=== PATIENT | male | born 1965 | race Caucasian/White ===

== ENCOUNTER 2021-02-07 04:54 | Emergency (ER) | payer BC, SELFPAY ==
--- NOTE | ~2021-02-07 | MR_ITS ---
MRI OF THE BRAIN WITHOUT IV CONTRAST MRA OF THE BRAIN WITH AND WITHOUT IV CONTRAST MRV OF THE BRAIN WITH AND WITHOUT IV CONTRAST INDICATION: Abnormal CT scan. COMPARISON: CTA head and neck performed earlier the same day. TECHNIQUE: Multiplanar multisequence MR imaging of the brain was obtained without IV contrast. Additionally, noncontrast and gadolinium infusion MRA and MRV of the head are obtained. Vascular post-processing, including 2-dimensional and 3-dimensional reformatted images were created and reviewed on an independent workstation under concurrent physician supervision. Stenoses are graded per criteria similar to NASCET. FINDINGS: MRI BRAIN: There is no hydrocephalus, extra-axial surface collection, or herniation. No parenchymal signal abnormality. The major flow voids at the skull base are preserved. There is no acute infarct on diffusion-weighted imaging. There is no intracranial hemorrhage on the gradient recalled echo acquisition. The midline structures are normal. The cerebellar tonsils are normally positioned. The cerebellum and brainstem are normal. The craniocervical junction is normal. Osseous marrow signal intensity is homogenous. The visualized soft tissues are unremarkable. MRA HEAD: Previous CTA findings were presumably artifactually related to delayed venous bolus timing. There is no arterialized venous flow to suggest a high flow vascular malformation. The anterior and posterior intracranial arterial circulations are widely patent without significant arterial stenosis and without acute arterial occlusion. No aneurysms and no high flow vascular malformations. MRV HEAD: The previously described filling defect within the right transverse sinus corresponds to an incidental arachnoid granulation. There is no evidence of cerebral venous thrombosis. The superficial and deep venous systems are patent. MR/MR venography head wo/w con IMPRESSION: - No acute intracranial findings. No acute infarcts. - The previously described filling defect within the right transverse sinus corresponds to an incidental arachnoid granulation. There is no evidence of cerebral venous thrombosis. - Previous CTA findings were presumably artifactually related to delayed venous bolus timing. There is no arterialized venous flow to suggest a high flow vascular malformation. Unremarkable MRA of the head.
--- NOTE | ~2021-02-07 | CT_ITS ---
CT HEAD WITHOUT CONTRAST CT ANGIOGRAM NECK WITH CONTRAST CT ANGIOGRAM BRAIN WITH CONTRAST CLINICAL INFORMATION: Right arm and right leg paresthesias for 3 days. COMPARISON: None. TECHNIQUE: Test bolus sequences followed by intravenous administration 70 mL of Omnipaque 350. Helical imaging was performed in the axial plane from the thoracic inlet to the skull vertex. Delayed postcontrast imaging of the head was also performed. The data was processed at the certified cytotechnologist workstation for generation of MIP sequences. Angled MIPs and volume rendered reformatted images were also generated at an offline 3D workstation under concurrent supervision. Stenoses are assessed in accordance with NASCET criteria unless otherwise indicated. This CT examination was performed using dose optimization techniques as appropriate, variously including the following: *Automated exposure control *Adjustment of mA and/or kV according to patient size (this includes techniques or standardized protocols for targeted exams where dose is matched to indication/reason for exam; i.e. extremities or head) *Use of iterative reconstruction technique FINDINGS: BRAIN: [There is no intracranial hemorrhage, hydrocephalus, extra-axial surface collection, midline shift, or other herniation pattern. Steele to white matter differentiation is diffusely maintained without evidence of an evolved acute territorial infarct. The basilar cisterns are preserved. No significant soft tissue abnormality. No acute osseous abnormality. The paranasal sinuses and the mastoid air cells are well aerated.] CERVICAL SOFT TISSUES AND LUNG APICES: Calcified tonsilliths within the palatine tonsils bilaterally. Mild cervical spondylosis. Imaged upper lungs are clear. NECK CTA: [There is a classic 3 vessel configuration of the aortic arch. Proximal arch vessels are non-stenotic. Left vertebral artery is dominant. No significant ostial stenosis is visualized on either side. Both vertebral arteries are widely patent throughout their extracranial cervical course. Both common carotid arteries are normal in course and caliber.] Atherosclerotic disease results in less than 50% stenoses of the proximal internal carotid arteries bilaterally. BRAIN CTA: [There is normal opacification of major intracranial arteries. No focal flow-limiting stenosis nor discrete proximal large artery occlusion. No aneurysm. There are asymmetrically prominent vessels throughout the supratentorial and infratentorial compartments, eccentric to the right side as well as a possible filling defect within the right transverse sinus that could reflect an arachnoid granulation or partially occlusive thrombus. And a MRA/MRV of the head with and without IV contrast and MRI of the brain would be helpful in excluding cerebral venous thrombosis and/or the presence of a dural AV fistula given these findings. CT/CT angio head neck IMPRESSION: - There are asymmetrically prominent vessels throughout the supratentorial and infratentorial compartments, eccentric to the right side as well as a possible filling defect within the right transverse sinus that could reflect an arachnoid granulation or partially occlusive thrombus. And a MRA/MRV of the head with and without IV contrast and MRI of the brain would be helpful in excluding cerebral venous thrombosis and/or the presence of a dural AV fistula given these findings. - No acute intracranial findings. - No acute arterial occlusions and no significant arterial stenoses within the head or neck. - Atherosclerotic disease results in less than 50% stenoses of the proximal internal carotid arteries bilaterally.
--- NOTE | ~2021-02-07 | CT_ITS ---
CT HEAD WITHOUT CONTRAST CT ANGIOGRAM NECK WITH CONTRAST CT ANGIOGRAM BRAIN WITH CONTRAST CLINICAL INFORMATION: Right arm and right leg paresthesias for 3 days. COMPARISON: None. TECHNIQUE: Test bolus sequences followed by intravenous administration 70 mL of Omnipaque 350. Helical imaging was performed in the axial plane from the thoracic inlet to the skull vertex. Delayed postcontrast imaging of the head was also performed. The data was processed at the senior cytotechnologist workstation for generation of MIP sequences. Angled MIPs and volume rendered reformatted images were also generated at an offline 3D workstation under concurrent supervision. Stenoses are assessed in accordance with NASCET criteria unless otherwise indicated. This CT examination was performed using dose optimization techniques as appropriate, variously including the following: *Automated exposure control *Adjustment of mA and/or kV according to patient size (this includes techniques or standardized protocols for targeted exams where dose is matched to indication/reason for exam; i.e. extremities or head) *Use of iterative reconstruction technique FINDINGS: BRAIN: [There is no intracranial hemorrhage, hydrocephalus, extra-axial surface collection, midline shift, or other herniation pattern. Steele to white matter differentiation is diffusely maintained without evidence of an evolved acute territorial infarct. The basilar cisterns are preserved. No significant soft tissue abnormality. No acute osseous abnormality. The paranasal sinuses and the mastoid air cells are well aerated.] CERVICAL SOFT TISSUES AND LUNG APICES: Calcified tonsilliths within the palatine tonsils bilaterally. Mild cervical spondylosis. Imaged upper lungs are clear. NECK CTA: [There is a classic 3 vessel configuration of the aortic arch. Proximal arch vessels are non-stenotic. Left vertebral artery is dominant. No significant ostial stenosis is visualized on either side. Both vertebral arteries are widely patent throughout their extracranial cervical course. Both common carotid arteries are normal in course and caliber.] Atherosclerotic disease results in less than 50% stenoses of the proximal internal carotid arteries bilaterally. BRAIN CTA: [There is normal opacification of major intracranial arteries. No focal flow-limiting stenosis nor discrete proximal large artery occlusion. No aneurysm. There are asymmetrically prominent vessels throughout the supratentorial and infratentorial compartments, eccentric to the right side as well as a possible filling defect within the right transverse sinus that could reflect an arachnoid granulation or partially occlusive thrombus. And a MRA/MRV of the head with and without IV contrast and MRI of the brain would be helpful in excluding cerebral venous thrombosis and/or the presence of a dural AV fistula given these findings. CT/CT head/brain wo con IMPRESSION: - There are asymmetrically prominent vessels throughout the supratentorial and infratentorial compartments, eccentric to the right side as well as a possible filling defect within the right transverse sinus that could reflect an arachnoid granulation or partially occlusive thrombus. And a MRA/MRV of the head with and without IV contrast and MRI of the brain would be helpful in excluding cerebral venous thrombosis and/or the presence of a dural AV fistula given these findings. - No acute intracranial findings. - No acute arterial occlusions and no significant arterial stenoses within the head or neck. - Atherosclerotic disease results in less than 50% stenoses of the proximal internal carotid arteries bilaterally.
--- NOTE | ~2021-02-07 | XR_ITS ---
EXAMINATION: CHEST 1 VIEW CLINICAL INFORMATION: Right-sided chest pain. COMPARISON: None. TECHNIQUE: An AP view of the chest is provided. FINDINGS: The cardiac silhouette is not enlarged. The mediastinal and hilar contours are unremarkable. There are neither pleural effusions nor pneumothoraces. There are no consolidations. The osseous structures are unremarkable. XR/XR chest 1V IMPRESSION: No evidence for acute disease.
--- NOTE | 2021-02-07 05:05 | ECG_ITS ---
Test Reason : CHEST PAIN Blood Pressure : / mmHG Vent. Rate : 086 BPM Atrial Rate : 086 BPM P-R Int : 136 ms QRS Dur : 080 ms QT Int : 374 ms P-R-T Axes : 069 014 069 degrees QTc Int : 447 ms Normal sinus rhythm Normal ECG No previous ECGs available Referred By: Iveth Han Electronically Signed By:Jimmie Griffith
--- NOTE | 2021-02-07 05:06 | ED.GENADULT ---
HPI - General Adult General Chief complaint: Chest Pain Stated complaint: Chest Pain Time Seen by Provider: 02/07/21 04:58 Source: patient Mode of arrival: ambulatory Limitations: no limitations History of Present Illness HPI narrative: Patient comes to emergency room complaining of right-sided chest pain for 3 days. Patient states the pain is dull, worse with certain movements, sometimes feels the pain radiating towards his back and his right shoulder. Patient denies abdominal pain, no burning sensation, no nausea or vomiting. Patient denies shortness of breath. Patient states that he is also concerned that he feels that his whole right body feels a bit tingly. Patient denies loss of strength, states that his right side of the body does not feel right and is a constant sensation. Related Data Allergies Allergy/AdvReac Type Severity Reaction Status Date / Time azithromycin [AZITHROMYCIN] Allergy Intermediate RASH Verified 02/07/21 05:06 clindamycin [CLINDAMYCIN] Allergy Intermediate ERYTHEMA Verified 02/07/21 05:06 MULTIFORME Penicillins [PENICILLINS] Allergy Unknown UNKNONWN Verified 02/07/21 05:06 Review of Systems Review of Systems: Constitutional : No Weight loss, No Fever, No Chills, No Night Sweats, No Fatigue, No Malaise ENT/Mouth : No Hearing loss, No Ear Pain, No Nasal Congestion, No Sinus Pain, No Hoarseness, No sore throat, No Rhinorrhea, No Swallowing Difficulty Eyes: No Eye Pain, No Swelling, No Redness, No Foreign Body, No Discharge, No Vision Changes Cardiovascular : Complaining of right-sided dull chest pain for 3 days radiating towards the back and right shoulder, worse with certain movements, No SOB, No Dyspnea on Exertion, No Orthopnea, No Edema, No Palpitations Respiratory : No Cough, No Sputum, No Wheezing, No Smoke Exposure, No Dyspnea Gastrointestinal : No Nausea, No Vomiting, No Diarrhea, No Constipation, No abdominal Pain, No Hematochezia, No Melena Genitourinary : no irregular bleeding, No Dysuria, No Urinary Frequency, No Hematuria, No Urinary Incontinence, No Urgency, No Flank Pain, No Urinary Flow Changes, No Hesitancy Musculoskeletal : No joint pain, No Myalgias, No Joint Swelling Skin : No Skin Lesions, No rash Neuro : No Weakness, No Numbness, No Paresthesias, No Loss of Consciousness, No Dizziness, No Headache Psych : No Anxiety/Panic, No Depression, No SI/HI/AH/VH, No Social Issues, Heme/Lymph: No Bruising, No Bleeding,No Lymphadenopathy Endocrine : No Polyuria, No Polydipsia, No Temperature Intolerance [facility] Past Medical History Medical History (Updated 02/07/21 @ 05:08 by Iveth Han MD) Hyperlipidemia Social History Social History Advance Directives: No Advance Directives Information Provided: No Physical Exam Vital Signs: Vital Signs: Last Vital Signs Temp 98 F 02/07/21 05:07 Pulse 88 02/07/21 05:07 Resp 16 02/07/21 05:07 BP 113/75 02/07/21 05:07 Pulse Ox 97 02/07/21 05:07 Body Mass Index 32.3 Appearance: Alert. Oriented X3. No acute distress. Eyes: Pupils equal, round and reactive to light. ENT: Pharynx normal. Neck: Normal inspection. Neck supple. No lymph nodes noted. No crepitus CVS: Normal heart rate and rhythm. Pulses normal. Normal S1 and S2 Respiratory: No respiratory distress. Breath sounds normal. No Wheezing. No rales Abdomen: Soft and nontender. No rigidity. No distention. good BS x4 Skin: Skin warm and dry. Normal skin color. Normal skin turgor. Extremities: No lower extremity edema. No lower extremity edema. No Lacerations. No Rash, strength 5/5 in bilateral lower and upper extremities Neuro: Oriented X 3. No motor deficit. No sensory deficit. Moving all extermities. No slurred speech. NIH Stroke Scale Level of Consciousness: Alert Level of Consciousness Questions: Answers both questions correctly Level of Consciousness Commands: Performs both tasks correctly Best Gaze: Normal Visual: No visual loss Facial Palsy: Normal Motor Arm (Right): No drift Motor Arm (Left): No drift Motor Leg (Right): No drift Motor Leg (Left): No drift Limb Ataxia: Absent Sensory: Normal Best Language: No aphasia Dysarthia: Normal Extinction and Inattention: No abnormality Score: 0 Course Course Course Narrative: Patient resting comfortably, vital stable, troponin negative, D-dimer negative. Given the patient's symptoms, a CT and CTA of head and neck were ordered. Results pending. Sign-out given to Dr. Cantu. If positive, patient may need a MRI Medical Decision Making Lab Data Result diagrams: 02/07/21 05:31 02/07/21 05:30 Labs: Lab Results 02/07/21 02/07/21 02/07/21 Range/Units 05:30 05:30 05:31 WBC 9.9 (4.8-10.8) X10*3/uL RBC 4.85 (4.60-5.80) X10*6/uL Hgb 15.5 (14.0-18.0) g/dl Hct 46.2 (42-52) % MCV 95.3 (80-98) fL MCH 32.0 (27.0-33.0) pg MCHC 33.5 (31.0-36.0) g/dl RDW 12.8 (11.0-16.0) % Plt Count 264 (160-400) X10*3/uL MPV 9.5 (9.4-12.4) fL Immature Gran % (Auto) 0.4 (0.0-0.4) % Neut % (Auto) 57.3 (45-73) % Lymph % (Auto) 32.8 (20-40) % [place] % (Auto) 6.5 (2-11) % Eos % (Auto) 2.4 (0-4) % Baso % (Auto) 0.6 (0-2) % Lymph # (Auto) 3.3 (1.2-4.9) X10*3/uL [place] # (Auto) 0.6 (0.1-1.2) X10*3/uL Eos # (Auto) 0.2 (0.0-0.4) X10*3/uL Baso # (Auto) 0.1 (0.0-0.2) X10*3/uL Abs Immat Gran (auto) 0.04 H (0.00-0.03) X10*3/uL Absolute Neuts (auto) 5.7 (2.0-8.3) X10*3/uL Absolute Nucleated RBC 0.000 (0.0-0.012) X10*3/uL Nucleated RBC % (auto) 0.0 (0.0-0.2) /100WBC D-Dimer NG/ML Sodium 139 (135-145) mmol/L Potassium 4.4 (3.3-5.1) mmol/L Chloride 102 (96-108) mmol/L Carbon Dioxide 24 (22-29) mmol/L Anion Gap 17 (12-20) BUN 12 (9-16) mg/dL Creatinine 1.12 (0.5-1.4) mg/dL Estim Creat Clear Calc 79.5 Estimated GFR > 60 Random Glucose 105 (60-115) mg/dL Calcium 9.2 (8.4-10.2) mg/dL Total Bilirubin 0.6 (0.0-1.0) mg/dL Direct Bilirubin 0.2 (0.0-0.5) mg/dL AST 25 (5-37) U/L ALT 37 (0-40) U/L Alkaline Phosphatase 30 L (39-117) U/L Troponin I High Sens < 3.5 (<3.5-35.0) ng/L B-Natriuretic Peptide < 10 (<100) pg/mL Total Protein 6.5 (6.5-8.0) g/dL Albumin 4.1 (3.5-5.0) g/dL 02/07/21 Range/Units 05:31 WBC (4.8-10.8) X10*3/uL RBC (4.60-5.80) X10*6/uL Hgb (14.0-18.0) g/dl Hct (42-52) % MCV (80-98) fL MCH (27.0-33.0) pg MCHC (31.0-36.0) g/dl RDW (11.0-16.0) % Plt Count (160-400) X10*3/uL MPV (9.4-12.4) fL Immature Gran % (Auto) (0.0-0.4) % Neut % (Auto) (45-73) % Lymph % (Auto) (20-40) % [place] % (Auto) (2-11) % Eos % (Auto) (0-4) % Baso % (Auto) (0-2) % Lymph # (Auto) (1.2-4.9) X10*3/uL [place] # (Auto) (0.1-1.2) X10*3/uL Eos # (Auto) (0.0-0.4) X10*3/uL Baso # (Auto) (0.0-0.2) X10*3/uL Abs Immat Gran (auto) (0.00-0.03) X10*3/uL Absolute Neuts (auto) (2.0-8.3) X10*3/uL Absolute Nucleated RBC (0.0-0.012) X10*3/uL Nucleated RBC % (auto) (0.0-0.2) /100WBC D-Dimer < 200 NG/ML Sodium (135-145) mmol/L Potassium (3.3-5.1) mmol/L Chloride (96-108) mmol/L Carbon Dioxide (22-29) mmol/L Anion Gap (12-20) BUN (9-16) mg/dL Creatinine (0.5-1.4) mg/dL Estim Creat Clear Calc Estimated GFR Random Glucose (60-115) mg/dL Calcium (8.4-10.2) mg/dL Total Bilirubin (0.0-1.0) mg/dL Direct Bilirubin (0.0-0.5) mg/dL AST (5-37) U/L ALT (0-40) U/L Alkaline Phosphatase (39-117) U/L Troponin I High Sens (<3.5-35.0) ng/L B-Natriuretic Peptide (<100) pg/mL Total Protein (6.5-8.0) g/dL Albumin (3.5-5.0) g/dL ECG Data Attestation: I personally reviewed and interpreted this ECG as follows: (Heart rate 86, sinus rhythm, ST segment depression or elevation, no T-wave inversion, QTC 447)
[2021-02-07 05:07] VITALS: BP 113/75; PULSE 88; RESP 16; TEMP 36.6; O2SAT 97; BMI 32.3
[2021-02-07 05:40] LABS: Basophils Absolute Auto 0.1 X10*3/uL (0.0-0.2); Basophils Percent Auto 0.6 % (0-2); Eosinophils Absolute Auto 0.2 X10*3/uL (0.0-0.4); Eosinophils Percent Auto 2.4 % (0-4); Hematocrit 46.2 % (42-52); Hemoglobin 15.5 g/dl (14.0-18.0); Imm Gran Abs Auto 0.04 X10*3/uL (0.00-0.03); Imm Gran Pct Auto 0.4 % (0.0-0.4); Lymphocytes Absolute Auto 3.3 X10*3/uL (1.2-4.9); Lymphocytes Percent Auto 32.8 % (20-40); MANUAL DIFF FLAG NO; Mean Corpuscular HGB Conc 33.5 g/dl (31.0-36.0); Mean Corpuscular Volume 95.3 fL (80-98); Mean Platelet Volume 9.5 fL (9.4-12.4); Monocytes Absolute Auto 0.6 X10*3/uL (0.1-1.2); Monocytes Percent Auto 6.5 % (2-11); Neutrophils Absolute Auto 5.7 X10*3/uL (2.0-8.3); Neutrophils Percent Auto 57.3 % (45-73); Platelet Count 264 X10*3/uL (160-400); Red Blood Count 4.85 X10*6/uL (4.60-5.80); Red Cell Distribution Width 12.8 % (11.0-16.0); White Blood Count 9.9 X10*3/uL (4.8-10.8)
[2021-02-07 05:59] LABS: D Dimer < 200 NG/ML
[2021-02-07 06:07] LABS: Alanine Aminotransferase 37 U/L (0-40); Albumin Level 4.1 g/dL (3.5-5.0); Alkaline Phosphatase 30 U/L (39-117); Anion Gap 17 (12-20); Aspartate Amino Transferase 25 U/L (5-37); Bilirubin Direct 0.2 mg/dL (0.0-0.5); Bilirubin Total 0.6 mg/dL (0.0-1.0); Blood Urea Nitrogen 12 mg/dL (9-16); Calcium 9.2 mg/dL (8.4-10.2); Carbon Dioxide 24 mmol/L (22-29); Chloride 102 mmol/L (96-108); Creatinine Clr Calc Pharmacy 79.5; Estimated Glomerular Filt Rate > 60; Glucose Random 105 mg/dL (60-115); Potassium 4.4 mmol/L (3.3-5.1); Sodium 139 mmol/L (135-145); Total Protein 6.5 g/dL (6.5-8.0)
[2021-02-07 06:11] LABS: B Type Natriuretic Peptide < 10 pg/mL (<100); Troponin-I High Sensitivity < 3.5 ng/L (<3.5-35.0)
[2021-02-07] MEDS: iohexoL 350 MG/ML 100 ML INFUS..BTL 70 ML IV (06:52)
--- NOTE | 2021-02-07 08:05 | PC.NURSE ---
mri form completed
[2021-02-07 08:06] VITALS: PULSE 70; RESP 18
[2021-02-07 09:53] VITALS: PULSE 105; RESP 20; O2SAT 98
--- NOTE | 2021-02-07 10:22 | PC.NURSE ---
awaiting mri, sleeping in bed at this time. resp even and unlabored.
--- NOTE | 2021-02-07 11:52 | PC.NURSE ---
pt to mri
--- NOTE | 2021-02-07 13:09 | PC.NURSE ---
pt return from mri
[2021-02-07] MEDS: Ibuprofen 600 MG TABLET PO (14:01)
== END 2021-02-07 14:04 | disposition home or self-care (01) ==
PROVIDERS: Emergency Provider Emergency Medicine
DX: R07.9 Chest pain, unspecified (principal); M47.892 Other spondylosis, cervical region; M54.2 Cervicalgia; M54.5 Low back pain; M25.511 Pain in right shoulder; R20.2 Paresthesia of skin; Z79.899 Other long term (current) drug therapy
CPT/HCPCS: 36415; 70450; 70496; 70498; 70546; 70551; 71045; 80048; 80076; 83880; 84484; 85025; 85379; 93005; 96374; 99285; A9585; Q9967

== ENCOUNTER 2023-07-01 13:15 | Emergency (ER) | payer OTHER, SELFPAY ==
--- NOTE | ~2023-07-01 | XR_ITS ---
EXAMINATION: Right foot, right ankle and chest x-ray. CLINICAL INDICATION: Pain. COMPARISON: Chest x-ray 02/07/2021. TECHNIQUE: Chest 2 views. Right foot 3 views and right ankle 2 views. FINDINGS: RIGHT ANKLE: The ankle mortise and subtalar joints are normal. No visible acute fracture, dislocation seen. The soft tissues are normal. RIGHT FOOT: The bones and joints are unremarkable. No fracture, lytic or sclerotic process. The ankle mortise and the subtalar joints are normal. The soft tissues are normal. CHEST: The lungs are well-expanded and clear. Heart size and progress clarities normal. No gross bony abnormality seen. XR/XR chest 2V IMPRESSION: Unremarkable right foot and right ankle exam. Unremarkable chest exam. .
--- NOTE | ~2023-07-01 | US_ITS ---
EXAMINATION: US VENOUS ULTRASOUND WITH DOPPLER LOWER EXTREMITY, RIGHT CLINICAL INFORMATION: Right leg swelling and pain COMPARISON: None available. TECHNIQUE: Ultrasound of the deep veins is performed from the hip to the calf with compression sonography and color and pulse Doppler assessment. Spectral analysis with color-flow imaging is performed. FINDINGS: There is normal venous compression and respiratory variation and augmented flow. The visualized common femoral vein, superficial femoral vein, profunda femoral vein, popliteal vein, and the trifurcation region shows no evidence of deep venous thrombosis. There is no significant popliteal fossa cyst. If the patient's symptoms persist, followup ultrasound in 5 days 7 days might be of value to exclude proximal propagation from a non-visualized calf vein. US/US venous duplex LE RT IMPRESSION: No DVT demonstrated in the right lower extremity.
--- NOTE | ~2023-07-01 | CT_ITS ---
EXAMINATION: CT HEAD WITHOUT CONTRAST CLINICAL INFORMATION: Right-sided numbness COMPARISON: None available. TECHNIQUE: Contiguous axial imaging was performed from the skull base to vertex without intravenous administration of contrast. This CT examination was performed using dose optimization techniques as appropriate, variously including the following: *Automated exposure control *Adjustment of mA and/or kV according to patient size (this includes techniques or standardized protocols for targeted exams where dose is matched to indication/reason for exam; i.e. extremities or head) *Use of iterative reconstruction technique DLP: 738 mGy-cm FINDINGS: There is no acute intra-axial, extra-axial bleed, masses or midline shift. There is no acute infarction in evolution. There is no edema. The coyne to white matter differentiation is maintained normal. The lateral ventricles are symmetrical in size and configuration without enlargement. Bone windows reveal no calvarial abnormality. There is no scalp soft tissue abnormality. Bilateral paranasal sinuses and mastoid air cells are well-aerated. CT/CT head/brain wo IV con IMPRESSION: No acute intracranial process seen.
--- NOTE | ~2023-07-01 | XR_ITS ---
EXAMINATION: Right foot, right ankle and chest x-ray. CLINICAL INDICATION: Pain. COMPARISON: Chest x-ray 02/07/2021. TECHNIQUE: Chest 2 views. Right foot 3 views and right ankle 2 views. FINDINGS: RIGHT ANKLE: The ankle mortise and subtalar joints are normal. No visible acute fracture, dislocation seen. The soft tissues are normal. RIGHT FOOT: The bones and joints are unremarkable. No fracture, lytic or sclerotic process. The ankle mortise and the subtalar joints are normal. The soft tissues are normal. CHEST: The lungs are well-expanded and clear. Heart size and progress clarities normal. No gross bony abnormality seen. XR/XR foot RT 2V IMPRESSION: Unremarkable right foot and right ankle exam. Unremarkable chest exam. .
--- NOTE | ~2023-07-01 | XR_ITS ---
EXAMINATION: Right foot, right ankle and chest x-ray. CLINICAL INDICATION: Pain. COMPARISON: Chest x-ray 02/07/2021. TECHNIQUE: Chest 2 views. Right foot 3 views and right ankle 2 views. FINDINGS: RIGHT ANKLE: The ankle mortise and subtalar joints are normal. No visible acute fracture, dislocation seen. The soft tissues are normal. RIGHT FOOT: The bones and joints are unremarkable. No fracture, lytic or sclerotic process. The ankle mortise and the subtalar joints are normal. The soft tissues are normal. CHEST: The lungs are well-expanded and clear. Heart size and progress clarities normal. No gross bony abnormality seen. XR/XR ankle RT 2V IMPRESSION: Unremarkable right foot and right ankle exam. Unremarkable chest exam. .
[2023-07-01 13:18] VITALS: BP 123/61; PULSE 87; RESP 15; TEMP 36.6; O2SAT 97; BMI 30.8
--- NOTE | 2023-07-01 13:23 | ECG_ITS ---
Test Reason : RT SIDE PAIN Blood Pressure : / mmHG Vent. Rate : 065 BPM Atrial Rate : 065 BPM P-R Int : 150 ms QRS Dur : 082 ms QT Int : 410 ms P-R-T Axes : 047 -04 036 degrees QTc Int : 426 ms Normal sinus rhythm with sinus arrhythmia Normal ECG When compared with ECG of 07-FEB-2021 05:05, No significant change was found Referred By: Raimundo Lee Electronically Signed By:CHINO TURNER
--- NOTE | 2023-07-01 13:26 | ED.GENADULT ---
HPI - General Adult General Chief complaint: Weakness Stated complaint: R side numbness Time Seen by Provider: 07/01/23 20:58 Source: patient Mode of arrival: ambulatory Limitations: no limitations History of Present Illness HPI narrative: 57 yo male with PMH of HLD hx of R sided weakness/numbness with negative MRI in 2020. 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 He also notes the R side of his body feels weird at times and he has heat in the chest on the right side He can feel the areas it just feels funny this has been going on for 5 days. It is not pain. He has no dyspnea no other swelling, no infectious symptoms and no tick bites MD complaint: leg swelling parasthesias Onset (ago): day(s) (7) Location: right, upper extremity and lower extremity Radiation: non-radiation Severity: mild Quality: dull Relieving factors: none Exacerbating factors: none Associated symptoms: other (foot edema, parasthesias, heat in right chest ) Treatments prior to arrival: none Related Data Allergies Allergy/AdvReac Type Severity Reaction Status Date / Time azithromycin [AZITHROMYCIN] Allergy Intermediate RASH Verified 02/07/21 05:06 clindamycin [CLINDAMYCIN] Allergy Intermediate ERYTHEMA Verified 02/07/21 05:06 MULTIFORME Penicillins [PENICILLINS] Allergy Unknown UNKNONWN Verified 02/07/21 05:06 Review of Systems Review of Systems: Constitutional : No Fever, No Chills, No Fatigue ENT/Mouth : No sore throat, No Rhinorrhea Eyes: No Eye Pain, No Swelling, No Redness Cardiovascular : No Chest Pain, No SOB, No Dyspnea on Exertion, pos edema Respiratory : No Cough, No Sputum Gastrointestinal : No Nausea, No Vomiting, No Diarrhea, No abdominal Pain Genitourinary : No Dysuria, No Urinary Frequency, No Hematuria, Musculoskeletal : No joint pain, No Myalgias, No Joint Swelling Skin : No Skin Lesions, No rash Neuro : No Weakness, pos Numbness, No Dizziness, no Headache Psych : No Anxiety/Panic, No Depression All other systems reviewed and are negative [facility] Past Medical History Attestation statement: The following information was validated with the patient. Source: old records reviewed Medical History Hyperlipidemia Social History Social History (Updated 07/01/23 @ 22:03 by Sanjuana Cantu DO) Alcohol intake: never Patient Tobacco Use Status: Tobacco use Unknown Advance Directives: No Advance Directives Information Provided: No Physical Exam ED Vital Signs: Vital Signs - 24 hr 07/01/23 13:18 07/01/23 18:53 07/01/23 19:32 Temperature 97.9 F 97.8 F Pulse Rate 87 60 54 Respiratory Rate 15 16 20 Blood Pressure 123/61 124/63 106/73 Pulse Oximetry 97 97 95 Oxygen Delivery Method Room Air Room Air Room Air 07/01/23 22:01 Temperature 98 F Pulse Rate 60 Respiratory Rate 12 Blood Pressure 113/72 Pulse Oximetry 96 Oxygen Delivery Method Room Air BMI result Body Mass Index 30.8 Appearance: Alert. Oriented X3. No acute distress. Eyes: Pupils equal, round and reactive to light. ENT: Pharynx normal. Neck: Normal inspection. Neck supple. CVS: Normal heart rate and rhythm. Pulses normal. Respiratory: No respiratory distress. Breath sounds normal. Abdomen: Soft and nontender. Skin: Skin warm and dry. Normal skin color. Normal skin turgor. Extremities: R foot NV intact, 1+ pitting edema no signs of infection dorsum of foot into ankle no other swelling or rash noted. Neuro: Oriented X 3. No motor deficit. No sensory deficit. NIH Stroke Scale Internal: Initial- Upon Arrival Level of Consciousness: Alert Level of Consciousness Questions: Answers both questions correctly Level of Consciousness Commands: Performs both tasks correctly Best Gaze: Normal Visual: No visual loss Facial Palsy: Normal Motor Arm (Right): No drift Motor Arm (Left): No drift Motor Leg (Right): No drift Motor Leg (Left): No drift Limb Ataxia: Absent Sensory: Normal Best Language: No aphasia Dysarthia: Normal Extinction and Inattention: No abnormality Score: 0 Course Course Course Narrative: Patient complains of a feeling of numbness on the right side of face rash a upper and lower extremities for past 5 days, no weakness, also complains of some right-sided pain in his chest, no shortness of breath and also complains of pain in his right foot and ankle Labs EKG and x-rays are ordered from triage This is rapid medical exam pending full evaluation in the ER for follow-up of all imaging and labs as well as full history and physical and dispo Medical Decision Making Medical Decision Making [facility] Narrative: 57 yo male with HLD here with R foot sweling no signs of infection NV intact no signs of trauma 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 He has vague heat in the chest that is not consistent with pain doubt ACS or VTE - no hypoxia or tachycardia. He also c/o wandering patching parasthesias that are intermittent x 5 days not consistent with stroke pattern no known MS no tick bites, no pain - CT head negative on day 5 doubt stroke can follow up with PCP. Differential Diagnosis Differential Diagnoses: The differential diagnosis associated with the presentation includes DVT, atypical presentation of parasthesias, trauma to foot, dependent edema, lyte abnormality pulses intact doubt ischemia NIH 0 subjective wandering parasthesias doubt stroke it is patchy and intermittent Admission/Observation Consideration of admission/observation: Escalation of care including admission/observation considered 5 days of symptoms workup negative stable for DC Lab Data [facility] Lab Attestation statement: I reviewed the patient's lab results. 07/01/23 14:50 07/01/23 14:50 Labs: Lab Results 07/01/23 Range/Units 14:50 WBC 7.5 (4.8-10.8) X10*3/uL RBC 4.94 (4.60-5.80) X10*6/uL Hgb 15.7 (14.0-18.0) g/dl Hct 45.2 (42.0-52.0) % MCV 91.5 (80.0-98.0) fL MCH 31.8 (27.0-33.0) pg MCHC 34.7 (31.0-36.0) g/dl RDW 11.8 (11.0-16.0) % Plt Count 211 (160-400) X10*3/uL MPV 9.8 (9.4-12.4) fL Immature Gran % (Auto) 0.3 (0.0-0.4) % Neut % (Auto) 59.7 (45-73) % Lymph % (Auto) 31.4 (20-40) % [place] % (Auto) 6.7 (2-11) % Eos % (Auto) 1.5 (0-4) % Baso % (Auto) 0.4 (0-2) % Lymph # (Auto) 2.4 (1.2-4.9) X10*3/uL [place] # (Auto) 0.5 (0.1-1.2) X10*3/uL Eos # (Auto) 0.1 (0.0-0.4) X10*3/uL Baso # (Auto) 0.0 (0.0-0.2) X10*3/uL Abs Immat Gran (auto) 0.02 (0.00-0.03) X10*3/uL Absolute Neuts (auto) 4.5 (2.0-8.3) x10*3/uL Absolute Nucleated RBC 0.000 (0.0-0.012) X10*3/uL Nucleated RBC % (auto) 0.0 (0.0-0.2) /100WBC PT 11.5 (11.1-13.3) SEC INR 0.9 (0.9-1.1) Sodium 141 (135-145) mmol/L Potassium 4.3 (3.3-5.1) mmol/L Chloride 106 (96-108) mmol/L Carbon Dioxide 26 (22-29) mmol/L Anion Gap 13 (12-20) BUN 15 (9-16) mg/dL Creatinine 1.30 (0.5-1.4) mg/dL Estim Creat Clear Calc 65.4 Estimated GFR 57 Random Glucose 108 (60-115) mg/dL Calcium 10.0 D (8.4-10.2) mg/dL Troponin I High Sens < 2.7 (<3.5-35.0) ng/L Independent Interpretation I performed an independent interpretation of an: EKG, Plain X-Ray (normal no fx), Ultrasound (negative) and CT Scan (normal ) Interpretation: Rate: 65 Rhythm: NSR Upper Tract: normal Normal P waves. Normal VELASQUEZ. Normal QRS complex. ST T wave : normal no LARISSA qTC: normal prior studies: no acute ischemia The study has been interpreted contemporaneously by me. . External Record Review External record reviewed: Inpatient record same presentation with negative MRI for stroke 2020 Tests considered The following testing was considered but not selected: given wandering pattern and prior history does not need CTA or MRI doubt stroke Discharge Plan Discharge Clinical Impression: Paresthesia, Pedal edema Patient Disposition: Home, Self-Care Instructions: Leg Edema (ED), Paresthesia (ED) Additional Instructions: your CT head, ultrasound, labs and xrays were normal. Please follow up with your doctor on Monday for further workup including MRI. You can take a baby 81mg aspirin until then. For your foot please elevate and wear a compressive sock - avoid driving for 3 days to prevent swelling keep elevated as much as possible return for worsening symptoms, pain, redness, fevers, weakness or any other concerns. Stand Alone Forms: Work/School Release
[2023-07-01 14:55] LABS: MANUAL DIFF FLAG NO
[2023-07-01 14:57] LABS: Basophils Percent Auto 0.4 % (0-2); Eosinophils Absolute Auto 0.1 X10*3/uL (0.0-0.4); Eosinophils Percent Auto 1.5 % (0-4); Hematocrit 45.2 % (42.0-52.0); Hemoglobin 15.7 g/dl (14.0-18.0); Imm Gran Abs Auto 0.02 X10*3/uL (0.00-0.03); Imm Gran Pct Auto 0.3 % (0.0-0.4); Lymphocytes Absolute Auto 2.4 X10*3/uL (1.2-4.9); Lymphocytes Percent Auto 31.4 % (20-40); Mean Corpuscular HGB Conc 34.7 g/dl (31.0-36.0); Mean Corpuscular Hemoglobin 31.8 pg (27.0-33.0); Mean Corpuscular Volume 91.5 fL (80.0-98.0); Mean Platelet Volume 9.8 fL (9.4-12.4); Monocytes Absolute Auto 0.5 X10*3/uL (0.1-1.2); Monocytes Percent Auto 6.7 % (2-11); Neutrophils Absolute Auto 4.5 x10*3/uL (2.0-8.3); Neutrophils Percent Auto 59.7 % (45-73); Platelet Count 211 X10*3/uL (160-400); Red Blood Count 4.94 X10*6/uL (4.60-5.80); Red Cell Distribution Width 11.8 % (11.0-16.0); White Blood Count 7.5 X10*3/uL (4.8-10.8)
[2023-07-01 15:03] LABS: INTERNATIONAL NORM RATIO 0.9 (0.9-1.1); Prothrombin Time 11.5 SEC (11.1-13.3)
[2023-07-01 15:13] LABS: Anion Gap 13 (12-20); Blood Urea Nitrogen 15 mg/dL (9-16); Carbon Dioxide 26 mmol/L (22-29); Chloride 106 mmol/L (96-108); Creatinine Clr Calc Pharmacy 65.4; Estimated Glomerular Filt Rate 57; Glucose Random 108 mg/dL (60-115); Potassium 4.3 mmol/L (3.3-5.1); Sodium 141 mmol/L (135-145)
[2023-07-01 15:29] LABS: Troponin-I High Sensitivity < 2.7 ng/L (<3.5-35.0)
[2023-07-01 18:53] VITALS: BP 124/63; PULSE 60; RESP 16; O2SAT 97
[2023-07-01 19:32] VITALS: BP 106/73; PULSE 54; RESP 20; TEMP 36.6; O2SAT 95
[2023-07-01 22:01] VITALS: BP 113/72; PULSE 60; RESP 12; TEMP 36.6; O2SAT 96
--- NOTE | 2023-07-01 22:58 | PC.NURSE ---
Pt ca&ox4, no signs of distress. Pt reports 1/10 dull aching pain. Plan of care on going.
== END 2023-07-01 23:14 | disposition home or self-care (01) ==
PROVIDERS: Physician Assistant Medical; Emergency Provider Emergency Medicine
DX: R20.2 Paresthesia of skin (principal); R60.0 Localized edema; R06.02 Shortness of breath; R29.700 NIHSS score 0; E78.5 Hyperlipidemia, unspecified
CPT/HCPCS: 36415; 70450; 71046; 73600; 73620; 80048; 84484; 85025; 85610; 93005; 93971; 99284